=== PATIENT | male | born 1950 | race Caucasian/White ===

== ENCOUNTER 2018-06-28 10:22 | Day surgery (SDC) | payer BC, MEDICARE ==
[2018-06-28] MEDS: NS 1,000 ML IV (06:00)
[2018-06-28] MEDS ORDERED: LIDOCAINE 2% INJ 100 MG/5 ML SDV (FOR ANES.) As Ordered (11:15)
[2018-06-28] MEDS ORDERED: PROPOFOL 200 MG/20 ML VIAL As Ordered ×2 (11:15)
[2018-06-28] MEDS ORDERED: fentaNYL 100 MCG/2 ML INJECTION (J3010) As Ordered (12:38)
== END 2018-06-28 14:13 | disposition home or self-care (01) ==
LOC: M OPP 14:13
DX: Z12.11 Encounter for screening for malignant neoplasm of colon (principal); K64.0 First degree hemorrhoids; D12.3 Benign neoplasm of transverse colon; K57.30 Diverticulosis of large intestine without perforation or abscess without bleeding; K22.2 Esophageal obstruction; R13.10 Dysphagia, unspecified; R12 Heartburn; I10 Essential (primary) hypertension; E78.00 Pure hypercholesterolemia, unspecified; E11.9 Type 2 diabetes mellitus without complications; G47.30 Sleep apnea, unspecified; E03.9 Hypothyroidism, unspecified; K21.9 Gastro-esophageal reflux disease without esophagitis; Z79.82 Long term (current) use of aspirin; Z79.84 Long term (current) use of oral hypoglycemic drugs; Z79.899 Other long term (current) drug therapy; Z96.651 Presence of right artificial knee joint; Z96.652 Presence of left artificial knee joint
CPT/HCPCS: 45380

== ENCOUNTER 2023-05-09 07:12 | Day surgery (SDC) | payer BC, MEDICARE ==
[~2023-05-09] VITALS: Ht 177.8 cm; Wt 115.3 kg
[~2023-05-09 07:12] MED LIST: ASPI81TA26 PO; ASPI81TA86 PO; CRAN400C PO; HYDR12CA PO; LEVO25TA5 PO; LOSA100T46 PO; METF-838 PO; NS 1,000 ML IV ONE; OMEP40CA4 PO; ROSU20TA61 PO; VITA100066 PO; VITA100093 PO
[2023-05-09] MEDS ORDERED: propofoL 200 MG/20 ML VIAL As Ordered ONE ×3 (07:46→09:26)
[2023-05-09] MEDS ORDERED: fentaNYL 100 MCG/2 ML INJECTION As Ordered ONE (07:49)
[2023-05-09 09:29] VITALS: TEMP 98.2
[2023-05-09 09:55] VITALS: BP 171/76; O2SAT 94
== END 2023-05-09 10:49 | disposition home or self-care (01) ==
LOC: M OPP 07:12
PROVIDERS: ATTEND Internal Medicine Gastroenterology
DX: Z86.010 Personal history of colon polyps (principal); K64.0 First degree hemorrhoids; K57.30 Diverticulosis of large intestine without perforation or abscess without bleeding; K22.2 Esophageal obstruction; K22.89 Other specified disease of esophagus; Z79.02 Long term (current) use of antithrombotics/antiplatelets; Z79.84 Long term (current) use of oral hypoglycemic drugs; Z79.899 Other long term (current) drug therapy; Z79.890 Hormone replacement therapy
CPT/HCPCS: 43239; 88305; G0105; J3010

== ENCOUNTER → 2024-01-11 | Outpatient (REF) | payer MEDICARE ==
[~2024-01-11] MED LIST changes: -NS 1,000 ML IV ONE
== END ==
LOC: M SFHCDERM 17:36
PROVIDERS: ATTEND Physician Assistant
DX: C44.319 Basal cell carcinoma of skin of other parts of face (principal); Z79.899 Other long term (current) drug therapy; Z79.82 Long term (current) use of aspirin; Z79.84 Long term (current) use of oral hypoglycemic drugs
CPT/HCPCS: 11102; 88305; G0463